=== PATIENT | male | born 1960 | race Caucasian/White ===

== ENCOUNTER → 2016-06-25 | Outpatient (CLI) | payer OTHER ==
[~2016-06-25] MED LIST: A/B OTIC DROPS; ALDACTONE25 MG PO; AMIODARONE PO; AMOXICILLIN PO; CLARITIN D PO; COMBIVENT RESPIM4 GM INH; DIGOX0.25 MG PO; ELIQUIS5 MG PO; HUMALOG100 U/ML SUBQ; LANTUS100 U/ML SUBQ; LASIX20 MG PO; LIPITOR PO; LISINOPRIL10 MG PO; LISINOPRIL5 MG PO; METFORMIN HCL500 M1 PO; METOPROLOL TAR100 MG PO; NO MEDICATIONS; PERCOCET5/325 PO; TOPROL XL 50 MG50 MG PO; ULTRAM PO
--- NOTE | ~2016-06-25 | CR170 ---
[facility] A Service of [facility] & [facility] RADIOLOGY TEXT RESULTS PATIENT: BRENNON RODRÍGUEZ LOCATION: [facility] : 64 UNIT #: [id number] AGE: [address]: Shen Macedo MD SEX: M ORDER DR: [id number] [facility] [address] [place], [place] [address] [id number] O MR#: [id number] Acc #: [id number] NAME: BRENNON RODRÍGUEZ : 1960 SEX: M STUDY DATE/TIME: 06/25/2016 8:10 UNIT: [facility] ROOM: STUDY DESCRIPTION: CR Knee 2 Views Rt Attending Physician: Shen Macedo M.D. Ordering Physician: Shen Maecdo M.D. MEDICAL IMAGING REPORT This report is preliminary unless electronic signature is present EXAM Right knee, 06/25 INDICATIONS Knee pain and tenderness for 4 weeks after twisting injury and fall. Sprained knee. FINDINGS 2 views of the right knee were obtained. No fracture is seen. There is no joint effusion. There is mild patellofemoral osteoarthritis. There is a probable loose body in the suprapatellar bursa measuring up to 1.4 cm in greatest dimension. There is a potential loose body near the intercondylar notch measuring about 5 mm in size. IMPRESSION Mild patellofemoral osteoarthritis. No acute findings. There are potentially at least 2 intraarticular loose bodies as above. Dictated by... Emory Castaneda Jr., M.D. THIS IS AN ELECTRONICALLY VERIFIED REPORT Emory Castaneda Jr., M.D. at 06/26/2016 5:50 AM LUIS ENRIQUE/naomi TD: 06/26/2016 01:01 JOB #: [id number] MEDICAL IMAGING REPORT Page 1 of 1 COPY
== END | disposition home or self-care (01) ==
LOC: CRAD 07:58
DX: S83.91XA Sprain of unspecified site of right knee, initial encounter (principal); M17.11 Unilateral primary osteoarthritis, right knee
CPT/HCPCS: 73560

== ENCOUNTER → 2016-08-12 | Outpatient (CLI) | payer OTHER ==
--- NOTE | ~2016-08-12 | CR63 ---
[facility] A Service of [facility] & [facility] RADIOLOGY TEXT RESULTS PATIENT: BRENNON RODRÍGUEZ LOCATION: [facility] : 64 UNIT #: [id number] AGE: [address]: Roxie Dee MD SEX: M ORDER DR: [id number] [facility] [address] [place], [place] [address] [id number] O MR#: [id number] Acc #: [id number] NAME: BRENNON RODRÍGUEZ : 1960 SEX: M STUDY DATE/TIME: 08/12/2016 12:11 UNIT: [facility] ROOM: STUDY DESCRIPTION: CR Chest 2 View Attending Physician: Roxie Dee M.D. Referring Physician: Roxie Dee M.D. Ordering Physician: Roxie Dee M.D. Primary Care Physician: Roxie Dee M.D. MEDICAL IMAGING REPORT This report is preliminary unless electronic signature is present EXAM PA and lateral chest 08/22/2016 COMPARISON 09/27/2015 HISTORY Got overheated at work, sweating, weakness beginning this morning. PA and lateral views are obtained. FINDINGS The cardiovascular configuration is normal and the lungs are clear. CONCLUSION Negative chest. No active disease. Dictated by... Hua Zapata M.D. THIS IS AN ELECTRONICALLY VERIFIED REPORT Hua Zapata M.D. at 08/13/2016 7:10 AM AVERY/jessika TD: 08/12/2016 15:06 JOB #: [id number] MEDICAL IMAGING REPORT Page 1 of 1 COPY
== END | disposition home or self-care (01) ==
LOC: CRAD 11:35
DX: Z01.818 Encounter for other preprocedural examination (principal)
CPT/HCPCS: 71020